=== PATIENT | female | born 1950 | race Caucasian/White ===

== ENCOUNTER 2023-02-27 14:50 | Inpatient (IN) | payer MEDICARE, OTHER, SELFPAY ==
[2023-02-27] VITALS (12 sets, daily range): BP systolic 100–168; BP diastolic 50–80; PULSE 108–124; RESP 15–24; TEMP 36.7; O2SAT 93–100
--- NOTE | ~2023-02-27 | CT_ITS ---
EXAMINATION: CTA chest PE protocol DATE: 02/27/2023 22:18 INDICATION: Dyspnea. TECHNIQUE: Computed tomography angiography (CTA) of the chest was performed with 100 mL Omnipaque-350 intravenous contrast timed to evaluate the pulmonary arteries. Coronal maximum intensity projection 3D-reconstructions were created by the technologist. Automated exposure control and iterative reconst ruction technique were employed. The dose-length product was 164.65 mGy-cm. COMPARISON: Chest CT 02/04/2014 FINDINGS: There is severe emphysema with multifocal scarring. Calcified pulmonary nodules are consist ent with old granulomatous disease. There is mild bronchiectasis in lingula. There is mild atelectasi s in the inferior lungs. No pleural effusion. There is a right posterior diaphragmatic hernia contain ing fat. The heart size is normal. No pericardial effusion. There is no pulmonary embolus. There is m ild thoracic spondylosis. There is a chronic burst fracture of T11. IMPRESSION: 1. No pulmonary embolus. 2. Severe emphysema with multifocal scarring. Reviewed, dictated and finalized at location E.
--- NOTE | ~2023-02-27 | XR_ITS ---
XR chest 1V portable DATE: 03/04/2023 04:03 INDICATION: Shortness of breath TECHNIQUE: Portable AP chest on 03/04/2023 COMPARISON: 02/27/2023 CT pulmonary scan 02/27/2023 portable AP chest FINDINGS: Bilateral hyperinflation consistent with COPD. Chronic bilateral scarring. No consolidation , pleural effusion, pulmonary vascular congestion or pneumothorax is noted. Normal heart size. Aortic calcification. Osteopenia. IMPRESSION: COPD, multifocal scarring; no significant change since 02/27/2022 Reviewed, dictated and finalized at location A.
--- NOTE | ~2023-02-27 | XR_ITS ---
EXAMINATION: XR chest 1V portable DATE: 02/27/2023 19:29 INDICATION: Shortness of breath. TECHNIQUE: A single frontal view of the chest was obtained. COMPARISON: Chest 2 views 03/09/2014 FINDINGS: There are lucencies and chronic interstitial opacities in the lungs, consistent with emphys michelle. There are scattered chronic airspace opacities in the lungs, consistent with scarring. No pleura l effusion or pneumothorax. The heart size is normal. IMPRESSION: 1. Severe emphysema with multifocal lung scarring. Reviewed, dictated and finalized at location E.
--- NOTE | ~2023-02-27 | CT_ITS ---
EXAMINATION: CT cervical spine wo con DATE: 02/27/2023 18:33 INDICATION: Head injury. TECHNIQUE: Computed tomography (CT) of the cervical spine was performed without intravenous contrast. Automated exposure control and iterative reconstruction technique were employed. The dose-length pro duct was 116.37 mGy-cm. COMPARISON: Chest CT 02/04/2014 FINDINGS: There is severe emphysema with multifocal scarring in the lungs. There is 2 mm anterolisthe sis of C4 on C5 and C5 on C6. Vertebral body heights are normal. Intervertebral disc heights are norm al. The following disc levels are specifically discussed: C2-C3: There is no uncovertebral joint osteoarthritis. There is severe bilateral facet joint osteoart hritis. There is mild bilateral neural foraminal stenosis. There is no central canal stenosis. C3-C4: There is no uncovertebral joint osteoarthritis. There is moderate bilateral facet joint osteoa rthritis. There is no neural foraminal stenosis. There is no central canal stenosis. C4-C5: There is no uncovertebral joint osteoarthritis. There is severe bilateral facet joint osteoart hritis. There is mild bilateral neural foraminal stenosis. There is no central canal stenosis. C5-C6: There is no uncovertebral joint osteoarthritis. There is moderate right and severe left facet joint osteoarthritis. There is mild left neural foraminal stenosis. There is no central canal stenosi s. C6-C7: There is no uncovertebral joint osteoarthritis. There is mild right and moderate left facet margie int osteoarthritis. There is no neural foraminal stenosis. There is no central canal stenosis. C7-T1: There is no uncovertebral joint osteoarthritis. There is mild bilateral facet joint osteoarthr itis. There is no neural foraminal stenosis. There is no central canal stenosis. IMPRESSION: 1. No fracture. 2. Mild cervical spondylosis. 3. Severe emphysema. Reviewed, dictated and finalized at location E.
--- NOTE | ~2023-02-27 | CT_ITS ---
EXAMINATION: CT brain wo con DATE: 02/27/2023 18:33 INDICATION: Ground-level fall. TECHNIQUE: Computed tomography (CT) of the head was performed without intravenous contrast. The mA wa s adjusted according to patient size. Iterative reconstruction technique was employed. The dose-lengt h product was 605.33 mGy-cm. COMPARISON: Head CT 02/10/2014 FINDINGS: There are scattered areas of low attenuation in the cerebral white matter, which is within normal limits for the patient's age. There is no intracranial hemorrhage, acute infarction, or abnorm al intracranial mass lesion. The ventricles are normal in size. There are likely changes of ocular le ns replacement surgeries. There is mild mucosal thickening in the paranasal sinuses. There is a right mastoid effusion. There is a left otomastoid effusion. There is frontal and right lateral scalp soft tissue swelling. IMPRESSION: 1. Normal aging brain. Reviewed, dictated and finalized at location E. IMPRESSION: 1. Normal aging brain.
--- NOTE | 2023-02-27 15:21 | ECG_ITS ---
Measurements Intervals [place] Rate: 110 P: 76 SD: 165 QRS: 76 QRSD: 85 T: 69 QT: 328 QTc: 444 Interpretive Statements SINUS TACHYCARDIA BASELINE ARTIFACT- I, II, III, AVR, AVL, AVF, V1-V2, V4-V6 ABNORMAL ECG NO PREVIOUS ECG AVAILABLE FOR COMPARISON Electronically Signed On 02-27-2023 16:19:25 CDT by Winston Craven D.O.
--- NOTE | 2023-02-27 17:53 | ED.FALL ---
HPI - Fall General Chief Complaint: Fall <Tomy Stein MD - Last Filed: 02/27/23 19:13> Stated Complaint: GLF <Tomy Stein MD - Last Filed: 02/27/23 19:13> Time Seen by Provider: 02/27/23 16:35 <Tomy Stein MD - Last Filed: 02/27/23 19:13> History of Present Illness HPI Narrative: This is a 72-year-old female with past history of emphysema on 3 L of O2, who presents to the emergency department after fall at home. The patient states she was walking, when she lost her balance, striking her head on a desk. She denies other injuries, denies loss of consciousness but had difficulty standing. She has no other complaints today. <Tomy Stein MD - Last Filed: 02/27/23 19:13> Related Data Allergies/Adverse Reactions: Allergies Allergy/AdvReac Type Severity Reaction Status Date / Time acetaminophen Allergy Severe Anaphylactic Verified 02/27/23 14:54 Shock guaifenesin Allergy Severe Anaphylactic Verified 02/27/23 14:54 Shock potassium guaiacolsulfonate Allergy Severe Anaphylactic Verified 02/27/23 14:54 Shock sulfamethoxazole Allergy Severe Anaphylactic Verified 02/27/23 14:54 Shock trimethoprim Allergy Severe Anaphylactic Verified 02/27/23 14:54 Shock codeine Allergy Mild Anaphylactic Verified 02/27/23 14:54 Shock HYDROCODONE BIT Allergy Severe Anaphylactic Uncoded 02/27/23 14:54 Shock <Tomy Stein MD - Last Filed: 02/27/23 19:13> Review of Systems Review of Systems: CONSTITUTIONAL: Denies fever, chills, or sweats. CARDIOVASCULAR: Denies chest pain, palpitations, or edema. RESPIRATORY: Chronic dyspnea denies cough GASTROINTESTINAL: Denies abdominal pain, nausea, vomiting, or diarrhea. GENITOURINARY: Denies dysuria or hematuria. SKIN: Denies rash or itching. MUSCULOSKELETAL: Denies back pain, joint pain, or myalgia. NEUROLOGIC: Headache denies numbness, dizziness, or weakness. PSYCHIATRIC: Denies anxiety or depression. <Tomy Stein MD - Last Filed: 02/27/23 19:13> [facility] Past Medical History Medical History: Medical History (Updated 02/27/23 @ 22:55 by Elgin Gomes MD) Emphysema of lung <Tomy Stein MD - Last Filed: 02/27/23 19:13> Surgical History Surgical History: Surgical History (Updated 02/27/23 @ 17:55 by Tomy Stein MD) History of left hip replacement <Tomy Stein MD - Last Filed: 02/27/23 19:13> Social History Social History: Social History (Updated 02/27/23 @ 17:55 by Tomy Stein MD) Smoking status: Never smoker Alcohol intake: never Substance use: never <Tomy Stein MD - Last Filed: 02/27/23 19:13> Exam Narrative: GENERAL: Well-developed, well-nourished, and in no acute distress. HEAD: Normocephalic, ecchymosis and small hematoma noted to the left anterior aspect of the forehead EYES: PERRLA and EOMI. ENT: Nares clear, no rhinorrhea or epistaxis. Mucous membranes moist. Oropharynx without tonsillar hypertrophy exudate or other lesions. NECK: Supple. No adenopathy or masses. No JVD. No midline spine tenderness to palpation, no step-off or crepitus CHEST: Clear to auscultation. No respiratory distress. No wheezes rales or rhonchi HEART: Regular rate and rhythm. No murmur heard. Normal peripheral pulses. ABDOMEN: Soft, nontender, nondistended, normal active bowel sounds. BACK: No midline spine tenderness to palpation, no step-off or crepitus EXTREMITIES: Skin tear is noted over the anterior aspect of the right knee measuring approximately 3 cm. Normal range of motion. No edema. SKIN: Warm, dry, no rash. NEURO: No focal deficits. Alert and oriented x3. Strength 5/5 in all extremities, sensation intact bilaterally, no noted ataxia PSYCH: Normal mood and affect. <Tomy Stein MD - Last Filed: 02/27/23 19:13> Course Course Emergency Course: 19:10 - CT head negative for intracranial fracture or hemorrh
[2023-02-27] MEDS: SODIUM CHLORIDE 0.9% IV 1,000 ML 999 ML IV CONT ×2 (18:07→19:28)
[2023-02-27] MEDS: TETANUS,DIPHTHERIA,AC PERTUSSIS ADULT (0.5 ML) BOOSTRIX IM (18:09)
[2023-02-27 18:14] LABS: Basophils Absolute Auto 0.1 K/mm3 (0.0-0.1); Basophils Percent Auto 0.5 % (0.2-1.2); Eosinophils Absolute Auto 0.2 K/mm3 (0-0.3); Eosinophils Percent Auto 1.6 % (0-4.4); Hematocrit 35.8 % (37.0-47.0); Hemoglobin 10.8 g/dL (12.0-15.0); Immature Granulocyte Absolute 0.04 K/mm3 (0.00-0.031); Immature Granulocyte Percent A 0.3 % (0-0.5); Lymphocytes Absolute Auto 1.31 K/mm3 (0.9-3.2); Lymphocytes Percent Auto 11.1 % (18.3-44.2); Mean Corpuscular HGB Conc 30.2 g/dl (32-36); Mean Corpuscular Hemoglobin 28.6 pg (26-34); Mean Corpuscular Volume 94.7 fl (80-100); Mean Platelet Volume 9.6 fl (7.4-10.4); Monocytes Absolute Auto 0.8 K/mm3 (0.1-0.6); Monocytes Percent Auto 6.8 % (2.6-8.5); Neutrophils Absolute Auto 9.4 K/mm3 (1.3-6.7); Neutrophils Percent Auto 79.7 % (45.5-73.1); Platelet Count Result 197 k/mm3 (150-375); Red Blood Count 3.78 M/mm3 (4.2-5.4); Red Cell Distribution Width 11.2 % (11.5-14.5); White Blood Count 11.8 K/mm3 (4.5-10.0)
[2023-02-27 18:34] LABS: Alanine Aminotransferase 13 U/L (6-35); Albumin Level 3.9 g/dL (3.5-5.1); Alkaline Phosphatase 63 U/L (38-126); Aspartate Amino Transferase 26 U/L (14-36); Bilirubin,Total 0.4 mg/dL (0.2-1.3); Blood Urea Nitrogen 10 mg/dL (7-17); Calcium 9.5 mg/dL (8.4-10.2); Carbon Dioxide > 40 mmol/L (22-30); Chloride 88 mmol/L (98-107); Estimated Glomerular Filt Rate > 60; Glucose 128 mg/dL (65-110); Potassium 3.2 mmol/L (3.4-5.0); Sodium 138 mmol/L (137-145)
[2023-02-27] MEDS: LEVALBUTEROL NEB 1.25 MG/3 ML INHALATION (19:19)
[2023-02-27] MEDS: IPRATROPIUM BR 0.02% INH SOLN 0.5 MG/2.5 ML VIAL INHALATION (19:19)
--- NOTE | 2023-02-27 19:39 | PC.NURSE ---
Just spoke with pt's son, Dominick, and gave update about pt condition.
[2023-02-27 20:38] LABS: Alveolar/Arterial O2 Gradient 4.4 mmHg; Base Excess ABG 11.3 mEq/l (+/-2.0); Fractional Inspired Oxygen 32 %; Oxygen Content ABG 15.6 %vol (16.0-22.0); Oxygen Saturation ABG 96.6 % (95.0-100.0); Oxyhemoglobin 96.1 % THb (90.0-100.0); PO2 ABG 106.6 mmHg (80.0-100.0); PO2 FiO2 Ratio Arterial Blood 3.33 %; Total Hemoglobin 11.4 g/dL (12.0-18.0)
[2023-02-27 20:46] LABS: pH ABG 7.237 (7.350-7.450)
[2023-02-27 20:47] LABS: PCO2 ABG 98.2 mmHg (35.0-45.0)
[2023-02-27 20:48] LABS: Device NASAL CANNULA; Modified Allen's Test Pass; Site Drawn RIGHT RADIAL
[2023-02-27] MEDS: IPRATROPIUM BR 0.02% INH SOLN 0.5 MG/2.5 ML VIAL 1.5 MG INHALATION (20:54)
[2023-02-27] MEDS: LEVALBUTEROL NEB 1.25 MG/3 ML 5 MG INHALATION (20:54)
--- NOTE | 2023-02-27 21:24 | PC.NURSE ---
Called pts son, saurav, and updated him on pt status. He was made aware the pt will be admitted to hospital.
[2023-02-27] MEDS: LORazepam (*CRX) 0.5 MG TABLET PO (21:51)
--- NOTE | 2023-02-27 23:32 | PC.NURSE ---
This RN left a telephone message for pts son informing him of pts room number.
--- NOTE | 2023-02-27 23:58 | PM.IMHP ---
H&P: HPI History of Present Illness Date/Time: 02/27/23 23:30 Chief Complaint: Fall. Narrative: This is a 72-year-old female with severe emphysema and chronic respiratory failure on oxygen who presented to the emergency department via EMS from home for evaluation after a fall. At the time my evaluation the patient is very somnolent and is not able to provide much of a history. A majority of the following is obtained via a review of her EMR as well as triage in ED physician notes. 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 Her son was able to help her up. She sustained a skin tear on her right knee and a hematoma to the forehead and she complained of no other injuries on arrival. She denied loss of consciousness and antecedent symptoms prior to the fall. She was in sinus tachycardia on arrival to the ED with stable blood pressures. CT of the brain and cervical spine showed no acute findings. CTA of the chest was negative for pulmonary embolism but showed severe emphysema. Labs were significant for WBC count of 11.8, hemoglobin 10.8, potassium 3.2, sodium 138, chloride 88, BUN 10, creatinine 0.30, carbon dioxide greater than 40. ABG showed a pH of 7.237 and a pCO2 of 98.2 and she was placed on BiPAP and was given 0.5 mg of p.o. lorazepam to anxiety. She is being admitted in this setting for further evaluation. At the time my evaluation she is somnolent and is arousable only to noxious stimuli. She will stay awake but is sleepy and her speech is slurred. She does not seem to have any acute complaints. She was able to specifically denies chest pain and feelings of shortness of breath. She has mild aching pain on her forehead where she has the hematoma. She denies recent illness. Review of Systems Review of Systems: A review of systems was attempted but limited due to the patient's somnolence as detailed above. [facility] Past Medical History Medical History (Updated 02/28/23 @ 00:40 by Edith Jones PA-C) Chronic respiratory failure with hypoxia, on home oxygen therapy Emphysema of lung Surgical History Surgical History History of left hip replacement Family History Family History (Updated 02/28/23 @ 00:36 by Edith Jones PA-C) Other Family history unknown Social History Social History (Updated 02/28/23 @ 00:37 by Edith Jones PA-C) Social History: Code status: Full code. Smoking status: Never smoker Alcohol intake: never Substance use: never Additional living arrangements comments: Lives in [place]. Has a son Dominick and a daughter Roopa. Meds Home Medications and Allergies Allergies Allergy/AdvReac Type Severity Reaction Status Date / Time acetaminophen Allergy Severe Anaphylactic Verified 02/27/23 14:54 Shock guaifenesin Allergy Severe Anaphylactic Verified 02/27/23 14:54 Shock potassium guaiacolsulfonate Allergy Severe Anaphylactic Verified 02/27/23 14:54 Shock sulfamethoxazole Allergy Severe Anaphylactic Verified 02/27/23 14:54 Shock trimethoprim Allergy Severe Anaphylactic Verified 02/27/23 14:54 Shock codeine Allergy Mild Anaphylactic Verified 02/27/23 14:54 Shock HYDROCODONE BIT Allergy Severe Anaphylactic Uncoded 02/27/23 14:54 Shock Vital Signs Vital Signs - 24 hr 02/27/23 14:46 02/27/23 15:46 02/27/23 17:12 Temperature 98.0 F Pulse Rate 115 H 111 H 115 H Respiratory Rate 21 H 17 24 H Blood Pressure 168/73 H 133/69 116/68 Pulse Oximetry 95 95 97 Oxygen Delivery Nasal Cannula Oxygen Flow Rate 2 02/27/23 18:09 02/27/23 18:50 02/27/23 19:19 Temperature Pulse Rate 119 H 122 H 122 H Respiratory Rate 20 21 H 17 Blood Pressure 159/78 H 161/71 H Pulse Oximetry 100 93 Oxygen Delivery Oxygen Flow Rate 02/27/23 19:32 02/27/23 20:06 02/27/23
[2023-02-28] VITALS (28 sets, daily range): BP systolic 113–152; BP diastolic 55–73; PULSE 78–120; RESP 14–24; TEMP 36.4–36.8; O2SAT 91–100; BMI 16.2
--- NOTE | 2023-02-28 00:11 | ADMGEN ---
This patient, Rabia Levine, was admitted to IMU Room 205-02. Patient/family oriented to hospital policies and general routines including ID bracelet, bed and alarms, visiting hours, pain management, procedures, bathroom and other care routines, personal items, smoking policy, room service/diet, and visiting hours. Information on how to activate the Rapid Response Team has been discussed. Patient/Family are encouraged to report perceived risks to care and to ask questions if they do not understand what they are told or what they should do.
[2023-02-28 00:42] LABS: Alveolar/Arterial O2 Gradient 48.6 mmHg; Base Excess ABG 12.7 mEq/l (+/-2.0); Fractional Inspired Oxygen 32 %; HCO3 ABG 41.7 mEq/l (22.0-26.0); Oxygen Saturation ABG 94.8 % (95.0-100.0); Oxyhemoglobin 94.5 % THb (90.0-100.0); PO2 FiO2 Ratio Arterial Blood 2.59 %; Total Hemoglobin 11.2 g/dL (12.0-18.0); pH ABG 7.322 (7.350-7.450)
[2023-02-28 00:47] LABS: Device BIPAP; Modified Allen's Test Pass; PCO2 ABG 82.5 mmHg (35.0-45.0); Site Drawn RIGHT BRACHIAL
[2023-02-28 00:49] LABS: Expiratory Pressure 6 cmH2O; Inspiratory Pressure 12 cmH2O
[2023-02-28] MEDS: methylPREDNISolone SOD SUCC 125 MG VIAL 40 MG IV PUSH ×4 (01:09→17:18)
[2023-02-28] MEDS: KCL 20 MEQ/SW 100 ML 100 ML 50 MEQ IVPB (01:17)
[2023-02-28] MEDS: IPRATROPIUM BR 0.02% INH SOLN 0.5 MG/2.5 ML VIAL INHALATION ×4 (03:27→20:46)
[2023-02-28] MEDS: ALBUTEROL SULFATE NEB 2.5 MG/3 ML INH INHALATION ×4 (03:27→20:46)
--- NOTE | 2023-02-28 03:33 | PC.NURSE ---
Admission and history done with limited answers from patient and ED record. Phone numbers for son and daughter called without answer, Unable to verify if patient takes any home medications.
--- NOTE | 2023-02-28 04:24 | PC.NURSE ---
Received call from patient's son who read medication bottles to this nurse.
[2023-02-28 05:10] LABS: Hematocrit 36.1 % (37.0-47.0); Hemoglobin 10.4 g/dL (12.0-15.0); Mean Corpuscular HGB Conc 28.8 g/dl (32-36); Mean Corpuscular Volume 97.3 fl (80-100); Mean Platelet Volume 9.8 fl (7.4-10.4); Platelet Count Result 149 k/mm3 (150-375); Red Blood Count 3.71 M/mm3 (4.2-5.4); White Blood Count 7.5 K/mm3 (4.5-10.0)
[2023-02-28 05:36] LABS: Blood Urea Nitrogen 7 mg/dL (7-17); Calcium 8.7 mg/dL (8.4-10.2); Carbon Dioxide > 40 mmol/L (22-30); Chloride 96 mmol/L (98-107); Estimated Glomerular Filt Rate > 60; Glucose 145 mg/dL (65-110); Potassium 3.8 mmol/L (3.4-5.0); Sodium 138 mmol/L (137-145)
[2023-02-28 08:01] LABS: Alveolar/Arterial O2 Gradient 63.2 mmHg; Base Excess ABG 10.2 mEq/l (+/-2.0); Fractional Inspired Oxygen 32 %; HCO3 ABG 38.1 mEq/l (22.0-26.0); Oxygen Content ABG 15.8 %vol (16.0-22.0); Oxygen Saturation ABG 95.5 % (95.0-100.0); Oxyhemoglobin 95.3 % THb (90.0-100.0); PO2 ABG 83.8 mmHg (80.0-100.0); PO2 FiO2 Ratio Arterial Blood 2.62 %; Total Hemoglobin 11.7 g/dL (12.0-18.0); pH ABG 7.357 (7.350-7.450)
[2023-02-28 08:05] LABS: PCO2 ABG 69.4 mmHg (35.0-45.0); Site Drawn LEFT BRACHIAL
[2023-02-28 08:06] LABS: Device NON-INVASIVE VENT; Non-Invasive Inspiratory Pressure 16 CMH2O
[2023-02-28 08:07] LABS: Non-Invasive Expiratory Pressure 8 CMH2O
[2023-02-28 08:30] LABS: Non-Invasive Vent Rate 18 /MIN
[2023-02-28 09:34] LABS: Thyroid Stimulating Hormone Reflex 0.307 uIU/mL (0.465-4.68)
[2023-02-28 09:58] LABS: Free T4 Free Thyroxine Reflex 1.16 ng/dL (0.78-2.19)
[2023-02-28] MEDS: PANTOPRAZOLE 40 MG TABLET PO (10:00)
[2023-02-28] MEDS: FERROUS SULFATE 325 MG TABLET DR PO (10:00)
[2023-02-28] MEDS: FUROSEMIDE 20 MG TABLET 40 MG PO (10:00)
[2023-02-28] MEDS: POTASSIUM CHLORIDE 10 MEQ ER TABLET PO (10:00)
[2023-02-28 10:42] LABS: Total Triiodothyronine (T3) 1.39 NG/ML (0.97-1.69)
--- NOTE | 2023-02-28 11:15 | PM.IMPN ---
Progress Note: A&P Assessment and Plan (1) Acute on chronic respiratory failure with hypoxia and hypercapnia: Code(s): J96.21 - Acute and chronic respiratory failure with hypoxia; J96.22 - Acute and chronic respiratory failure with hypercapnia Status: Acute Assessment and Plan: ABG looks better. Looks like chronic compensation this point. Will let the patient eat get off BiPAP today. Will repeat ABG tonight. (2) Encephalopathy: Code(s): G93.40 - Encephalopathy, unspecified Status: Acute Assessment and Plan: Improved (3) Fall from ground level: Code(s): W18.30XA - Fall on same level, unspecified, initial encounter Status: Acute Assessment and Plan: PT OT (4) Contusion of forehead: Qualifiers: Encounter type: initial encounter Qualified Code(s): S00.83XA - Contusion of other part of head, initial encounter Code(s): S00.83XA - Contusion of other part of head, initial encounter Status: Acute Assessment and Plan: Monitor (5) Skin tear of right lower leg without complication: Qualifiers: Encounter type: initial encounter Qualified Code(s): S81.811A - Laceration without foreign body, right lower leg, initial encounter Code(s): S81.811A - Laceration without foreign body, right lower leg, initial encounter Status: Acute (6) Acute exacerbation of chronic obstructive pulmonary disease: Code(s): J44.1 - Chronic obstructive pulmonary disease with (acute) exacerbation Status: Acute Assessment and Plan: Continue steroids. Continue nebulizers. (7) Reflux esophagitis: Code(s): K21.00 - Gastro-esophageal reflux disease with esophagitis, without bleeding Status: Acute Assessment and Plan: History of, continue PPI. Subjective Date/time seen: 02/28/23 11:15 Interval history: Patient reports breathing is much better. ABG looks to be compensated at this time. She wants to be off her BiPAP. She is refusing at this time. Exam Const: Other: Thin, frail, ill-appearing female in the semi-Bliss position in bed on BiPAP. She is somnolent but arousable to noxious stimuli. Weight: 36.4 kg. BMI: 16.2. HENMT: Other: There is a hematoma across the forehead, more prominent on the right. BiPAP in place. Nares patent. Tacky mucous membranes. Eyes: Other: Pupils are approximately 3 mm and are reactive. Sclerae anicteric. Conjunctiva mildly injected. Neck: Other: Supple. No obvious JVD. Resp: Other: Respirations are nonlabored and she is tolerating BiPAP. Lung sounds are significantly diminished throughout with faint expiratory wheezing. Tidal volumes between 200 and 300. Cardio: Other: Regular rate rhythm with normal S1-S2. GI: Other: Abdomen is soft, flat, nontender, nondistended with positive bowel sounds. Skin: Other: Warm and dry. Hematoma on the forehead. There is a skin tear on the right leg. Neuro: Other: Alert to name. She does not answer the rest of the orientation questions. Cranial nerves 2-12 appear grossly intact. Hand crabbing machine operator are weak due to poor effort but seem equal bilaterally. She does not participate in the rest of the neurologic exam. Extrem: Other: No cyanosis, clubbing, or edema. Peripheral pulses intact. Psych: Other: Somnolent and unable to evaluate accurately at this time. Objective Data Vital Signs Vital Signs: Vital Signs - 24 hr 02/27/23 14:46 02/27/23 15:46 02/27/23 17:12 Temperature 98.0 F Pulse Rate 115 H 111 H 115 H Respiratory Rate 21 H 17 24 H Blood Pressure 168/73 H 133/69 116/68 Pulse Oximetry 95 95 97 Oxygen Delivery Nasal Cannula Oxygen Flow Rate 2 02/27/23 18:09 02/27/23 18:50 02/27/23 19:19 Temperature Pulse Rate 119 H 122 H 122 H Respiratory Rate 20 21 H 17 Blood Pressure 159/78 H 161/71 H Pulse Oximetry 100 93 Oxygen Delivery Oxygen [place]
[2023-02-28] MEDS: SILVERGEL (ELTA) 45 ML 1 APPLIC TOPICAL (17:04)
--- NOTE | 2023-02-28 18:10 | PC.NURSE ---
Dr Yusuf made aware of critical results of CO2 69.4 from ABG today and gave verbal order to take off Bipap and place on NC titrate as tolerated to home sitting of 3 L and repeat ABG at 1900 this evening.
[2023-02-28 19:51] LABS: Alveolar/Arterial O2 Gradient 31.5 mmHg; Base Excess ABG 16.4 mEq/l (+/-2.0); Fractional Inspired Oxygen 28 %; HCO3 ABG 44.2 mEq/l (22.0-26.0); Oxygen Content ABG 15.3 %vol (16.0-22.0); Oxygen Saturation ABG 95.8 % (95.0-100.0); Oxyhemoglobin 95.2 % THb (90.0-100.0); PO2 ABG 83.2 mmHg (80.0-100.0); PO2 FiO2 Ratio Arterial Blood 2.97 %; Total Hemoglobin 11.4 g/dL (12.0-18.0); pH ABG 7.406 (7.350-7.450)
[2023-02-28 19:56] LABS: Device NASAL CANNULA; Modified Allen's Test Pass; Site Drawn RIGHT BRACHIAL
[2023-03-01] VITALS (24 sets, daily range): BP systolic 102–149; BP diastolic 61–90; PULSE 82–132; RESP 12–20; TEMP 36.4–36.7; O2SAT 95–100
[2023-03-01] MEDS: methylPREDNISolone SOD SUCC 125 MG VIAL 40 MG IV PUSH ×5 (00:03→23:33)
[2023-03-01] MEDS: ALBUTEROL SULFATE NEB 2.5 MG/3 ML INH INHALATION ×2 (02:10→08:32)
[2023-03-01] MEDS: IPRATROPIUM BR 0.02% INH SOLN 0.5 MG/2.5 ML VIAL INHALATION ×4 (02:10→20:44)
[2023-03-01] MEDS: POTASSIUM CHLORIDE 10 MEQ ER TABLET PO (09:22)
[2023-03-01] MEDS: FERROUS SULFATE 325 MG TABLET DR PO (09:23)
[2023-03-01] MEDS: FUROSEMIDE 20 MG TABLET 40 MG PO (09:23)
[2023-03-01] MEDS: PANTOPRAZOLE 40 MG TABLET PO (09:23)
[2023-03-01] MEDS: SILVERGEL (ELTA) 45 ML 1 APPLIC TOPICAL (09:24)
[2023-03-01 10:31] LABS: Alveolar/Arterial O2 Gradient 61.8 mmHg; Base Excess ABG 13.9 mEq/l (+/-2.0); Carboxyhemoglobin 0.4 % THb (0-2.0); Fractional Inspired Oxygen 28 %; HCO3 ABG 40.5 mEq/l (22.0-26.0); Methemoglobin ABG 0.3 %THb (0-1.5); Oxygen Content ABG 16.2 %vol (16.0-22.0); Oxygen Saturation ABG 93.5 % (95.0-100.0); Oxyhemoglobin 92.9 % THb (90.0-100.0); PO2 FiO2 Ratio Arterial Blood 2.39 %; Reduced Hemoglobin 6.4 %THb (0-5.0); Total Hemoglobin 12.4 g/dL (12.0-18.0); pH ABG 7.447 (7.350-7.450)
[2023-03-01 10:33] LABS: Device NASAL CANNULA; Site Drawn LEFT BRACHIAL
--- NOTE | 2023-03-01 11:59 | PM.IMPN ---
Progress Note: A&P Assessment and Plan (1) Acute on chronic respiratory failure with hypoxia and hypercapnia: Code(s): J96.21 - Acute and chronic respiratory failure with hypoxia; J96.22 - Acute and chronic respiratory failure with hypercapnia Status: Acute Assessment and Plan: ABG looks better. Looks compensated at this point. 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 She does have bad COPD. Continue oxygen. Will also have Pulmonary see the patient to see if she needs to have BiPAP set up at home. Will likely need [facility]nea[facility]. (2) Encephalopathy: Code(s): G93.40 - Encephalopathy, unspecified Status: Acute Assessment and Plan: Improved (3) Fall from ground level: Code(s): W18.30XA - Fall on same level, unspecified, initial encounter Status: Acute Assessment and Plan: PT OT (4) Contusion of forehead: Qualifiers: Encounter type: initial encounter Qualified Code(s): S00.83XA - Contusion of other part of head, initial encounter Code(s): S00.83XA - Contusion of other part of head, initial encounter Status: Acute Assessment and Plan: Monitor (5) Skin tear of right lower leg without complication: Qualifiers: Encounter type: initial encounter Qualified Code(s): S81.811A - Laceration without foreign body, right lower leg, initial encounter Code(s): S81.811A - Laceration without foreign body, right lower leg, initial encounter Status: Acute (6) Acute exacerbation of chronic obstructive pulmonary disease: Code(s): J44.1 - Chronic obstructive pulmonary disease with (acute) exacerbation Status: Acute Assessment and Plan: Continue steroids. Continue nebulizers. No indication for antibiotics at this time Pulmonary consult (7) Reflux esophagitis: Code(s): K21.00 - Gastro-esophageal reflux disease with esophagitis, without bleeding Status: Acute Assessment and Plan: History of, continue PPI. Subjective Date/time seen: 03/01/23 11:59 Interval history: Patient reports her breathing is much better. ABG noted. Exam Const: Other: Thin, frail, ill-appearing female in the semi-Bliss position in bed on BiPAP. She is somnolent but arousable to noxious stimuli. Weight: 36.4 kg. BMI: 16.2. HENMT: Other: There is a hematoma across the forehead, more prominent on the right. BiPAP in place. Nares patent. Tacky mucous membranes. Eyes: Other: Pupils are approximately 3 mm and are reactive. Sclerae anicteric. Conjunctiva mildly injected. Neck: Other: Supple. No obvious JVD. Resp: Other: Respirations are nonlabored and she is tolerating BiPAP. Lung sounds are significantly diminished throughout with faint expiratory wheezing. Tidal volumes between 200 and 300. Cardio: Other: Regular rate rhythm with normal S1-S2. GI: Other: Abdomen is soft, flat, nontender, nondistended with positive bowel sounds. Skin: Other: Warm and dry. Hematoma on the forehead. There is a skin tear on the right leg. Neuro: Other: Alert to name. She does not answer the rest of the orientation questions. Cranial nerves 2-12 appear grossly intact. Hand jewelry model maker are weak due to poor effort but seem equal bilaterally. She does not participate in the rest of the neurologic exam. Extrem: Other: No cyanosis, clubbing, or edema. Peripheral pulses intact. Psych: Other: Somnolent and unable to evaluate accurately at this time. Objective Data Vital Signs Vital Signs: Vital Signs - 24 hr 02/28/23 12:00 02/28/23 13:16 02/28/23 12:00 Temperature 98.3 F Pulse Rate 110 H 112 H 106 H Respiratory Rate 14 18 Blood Pressure 132/69 Pulse Oximetry 95 Oxygen Delivery Oxygen Flow Rate 02/28/23 12:00 02/28/23 13:31 02/28/23 14:00 Temperature Pulse Rate 113 H 115 H Respiratory Rate 18 Blood Pressure Pulse Oximetry 10
[2023-03-01] MEDS: METOPROLOL SUCCINATE EXT REL 25 MG TABCR PO (13:14)
[2023-03-01] MEDS: LEVALBUTEROL NEB 1.25 MG/3 ML 0.63 MG INHALATION ×2 (13:44→20:44)
--- NOTE | 2023-03-01 14:08 | PM.CNPUL ---
Assessment and Plan Assessment and plan (1) Acute exacerbation of chronic obstructive pulmonary disease: Code(s): J44.1 - Chronic obstructive pulmonary disease with (acute) exacerbation Status: Acute Assessment and Plan: Severe emphysema on chest CT; non-homogenous cystic changes in lung parenchyma. scattered areas of scarring. Her home med list shows that she takes Spiriva. She has severe emphysema, would benefit from nebulized medications instead of inhaler as she has limited inspiratory reserve, cannot take a breath in that is effective enough to distribute a puff of tiotropium around her damaged lung tissue. plan: start budesonide 0.5 mg BID, arformoterol 15 mcg/2 ml BID, ipratropium q.i.d. and albuterol daily. Pulmonary rehab would be beneficial however she would need PFTs, home O2 evaluation and Lexiscan before starting therapy. She does not get out of the house much. She currently does not have any sputum to evaluate, says that she has small amounts of brown sputum at home once every few weeks. She does not have frequent respiratory infections. (2) Acute on chronic respiratory failure with hypoxia and hypercapnia: Code(s): J96.21 - Acute and chronic respiratory failure with hypoxia; J96.22 - Acute and chronic respiratory failure with hypercapnia Status: Acute Assessment and Plan: She uses O2 at home, 3 L/min around the clock. She used BiPAP 12/6 with 3 L which did help with ventilation. She tells me the mask was uncomfortable, she would never use it at home therefore there is no reason for us to perform an ApneaLink or tried to set her up on a noninvasive device. She has non homogeneous distribution of cystic lesions throughout her lungs. 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 She would be best is optimizing her nebulized treatments, pulmonary rehab, and she is probably too frail to have a full pulmonary function test. She needs to have a Home O2 evaluation before discharge to establish what her needs are for rest and exertion. Initial blood gas showed pO2 of 106 on 3 L; I think she was on more oxygen than 3 L/minute. (3) History of tobacco abuse: Code(s): Z87.891 - Personal history of nicotine dependence Status: Acute Assessment and Plan: < 1/2 ppd, quit age 59, smoked 40 years, less than 40 pack years Plan Stop Solu-Medrol 60 mg IV q.6 hours Start prednisone 50 mg in the morning with food. Stop Spiriva. Start budesonide 0.5 mg BID, arformoterol 15 mcg/2 ml BID, ipratropium q.i.d. and albuterol daily. Home oxygen evaluation before discharge No ApneaLink or PAP therapy for home use; she says she can not stand using it, does not like the mask which is uncomfortable. She would not use PAP therapy at home. She needs ENT outpatient follow-up for hearing loss and left ear fullness. I did not detect anything on my limited exam. She needs a thorough neuro exam for distinguishing cause of her dizziness and falls. Is she depressed? Quit eating and lost 43 lb after 2019. Would some antidepressant help her feel better and maybe eat more? Defer to primary care. History of Present Illness History of Present Illness Consult date: 03/02/23 Chief complaint: COPD Narrative: patient seen March 02 at 17:15 Room 213 NEW: Rabia Levine is a 72-year-old woman with long history of emphysema, on O2, admitted after falling. Initial WBC was 11.8, anemic H/H 10.8/35.8, with hypercapnic hypoxemic ABGs, pCO2 98. She was treated with BiPAP, does not want to use PAP at home. She cannot stand the mask, says it is too small, does not sleep well with it. She wants to go home as soon as possible. She became dizzy at home, was leaning forward & bending over, lost balance, fel
[2023-03-01] MEDS: METOPROLOL TARTRATE INJ 5 MG/5 ML VIAL IV PUSH (15:05)
[2023-03-02] VITALS (24 sets, daily range): BP systolic 120–140; BP diastolic 57–74; PULSE 76–115; RESP 18–22; TEMP 36.3–36.6; O2SAT 98–100
[2023-03-02] MEDS: LEVALBUTEROL NEB 1.25 MG/3 ML 0.63 MG INHALATION ×4 (02:49→20:55)
[2023-03-02] MEDS: IPRATROPIUM BR 0.02% INH SOLN 0.5 MG/2.5 ML VIAL INHALATION ×4 (02:49→20:58)
[2023-03-02] MEDS: methylPREDNISolone SOD SUCC 125 MG VIAL 40 MG IV PUSH ×3 (05:59→18:40)
[2023-03-02] MEDS: METOPROLOL SUCCINATE EXT REL 25 MG TABCR PO (09:49)
[2023-03-02] MEDS: FUROSEMIDE 20 MG TABLET 40 MG PO (09:49)
[2023-03-02] MEDS: PANTOPRAZOLE 40 MG TABLET PO (09:50)
[2023-03-02] MEDS: POTASSIUM CHLORIDE 10 MEQ ER TABLET PO (09:50)
[2023-03-02] MEDS: FERROUS SULFATE 325 MG TABLET DR PO (09:50)
--- NOTE | 2023-03-02 13:37 | PM.IMPN ---
Progress Note: A&P Assessment and Plan (1) Acute on chronic respiratory failure with hypoxia and hypercapnia: Code(s): J96.21 - Acute and chronic respiratory failure with hypoxia; J96.22 - Acute and chronic respiratory failure with hypercapnia Status: Acute Assessment and Plan: ABG looks better. Looks compensated at this point. Patient does not follow with a cushion padder. She does have bad COPD. Continue oxygen. Will also have Pulmonary see the patient to see if she needs to have BiPAP set up at home. Will likely need ApneaLink. (2) Encephalopathy: Code(s): G93.40 - Encephalopathy, unspecified Status: Acute Assessment and Plan: Improved (3) Fall from ground level: Code(s): W18.30XA - Fall on same level, unspecified, initial encounter Status: Acute Assessment and Plan: PT OT (4) Contusion of forehead: Qualifiers: Encounter type: initial encounter Qualified Code(s): S00.83XA - Contusion of other part of head, initial encounter Code(s): S00.83XA - Contusion of other part of head, initial encounter Status: Acute Assessment and Plan: Monitor (5) Skin tear of right lower leg without complication: Qualifiers: Encounter type: initial encounter Qualified Code(s): S81.811A - Laceration without foreign body, right lower leg, initial encounter Code(s): S81.811A - Laceration without foreign body, right lower leg, initial encounter Status: Acute (6) Acute exacerbation of chronic obstructive pulmonary disease: Code(s): J44.1 - Chronic obstructive pulmonary disease with (acute) exacerbation Status: Acute Assessment and Plan: Continue steroids. Continue nebulizers. No indication for antibiotics at this time Pulmonary consult (7) Reflux esophagitis: Code(s): K21.00 - Gastro-esophageal reflux disease with esophagitis, without bleeding Status: Acute Assessment and Plan: History of, continue PPI. Subjective Date/time seen: 03/02/23 13:37 Interval history: No new complaints Exam Const: Other: Thin, frail, ill-appearing female in the semi-Bliss position in bed on BiPAP. She is somnolent but arousable to noxious stimuli. Weight: 36.4 kg. BMI: 16.2. HENMT: Other: There is a hematoma across the forehead, more prominent on the right. BiPAP in place. Nares patent. Tacky mucous membranes. Eyes: Other: Pupils are approximately 3 mm and are reactive. Sclerae anicteric. Conjunctiva mildly injected. Neck: Other: Supple. No obvious JVD. Resp: Other: Respirations are nonlabored and she is tolerating BiPAP. Lung sounds are significantly diminished throughout with faint expiratory wheezing. Tidal volumes between 200 and 300. Cardio: Other: Regular rate rhythm with normal S1-S2. GI: Other: Abdomen is soft, flat, nontender, nondistended with positive bowel sounds. Skin: Other: Warm and dry. Hematoma on the forehead. There is a skin tear on the right leg. Neuro: Other: Alert to name. She does not answer the rest of the orientation questions. Cranial nerves 2-12 appear grossly intact. Hand air and hydronic balancing technician are weak due to poor effort but seem equal bilaterally. She does not participate in the rest of the neurologic exam. Extrem: Other: No cyanosis, clubbing, or edema. Peripheral pulses intact. Psych: Other: Somnolent and unable to evaluate accurately at this time. Objective Data Vital Signs Vital Signs: Vital Signs - 24 hr 03/01/23 13:46 03/01/23 14:07 03/01/23 14:00 Temperature Pulse Rate 128 H 132 H 132 H Respiratory Rate 16 18 Blood Pressure Pulse Oximetry Oxygen Delivery Oxygen Flow Rate Fraction of Inspired Oxygen 03/01/23 15:05 03/01/23 16:00 03/01/23 16:00 Temperature Pulse Rate 132 H 106 H 104 H Respiratory Rate Blood Pressure Pulse Oximetry 100 Oxygen Deliver
[2023-03-02] MEDS: SILVERGEL (ELTA) 45 ML 1 APPLIC TOPICAL (14:31)
[2023-03-03] VITALS (23 sets, daily range): BP systolic 110–158; BP diastolic 60–80; PULSE 61–107; RESP 18–20; TEMP 36.3–37.1; O2SAT 93–100
[2023-03-03] MEDS: IPRATROPIUM BR 0.02% INH SOLN 0.5 MG/2.5 ML VIAL INHALATION ×4 (02:50→20:50)
[2023-03-03] MEDS: KETOROLAC 30 MG/ML VIAL (*BKC) IV PUSH (06:37)
[2023-03-03] MEDS: BUDESONIDE RESPULE NEB 0.5 MG/2 ML AMP INHALATION ×2 (08:44→20:50)
[2023-03-03] MEDS: predniSONE 40 MG, predniSONE 10 MG 50 MG PO (08:45)
[2023-03-03] MEDS: PANTOPRAZOLE 40 MG TABLET PO (08:46)
[2023-03-03] MEDS: FUROSEMIDE 20 MG TABLET 40 MG PO (08:46)
[2023-03-03] MEDS: FERROUS SULFATE 325 MG TABLET DR PO (08:46)
[2023-03-03] MEDS: METOPROLOL SUCCINATE EXT REL 25 MG TABCR PO (08:46)
[2023-03-03] MEDS: POTASSIUM CHLORIDE 10 MEQ ER TABLET PO (08:47)
--- NOTE | 2023-03-03 09:09 | PM.PNPUL ---
Progress Note: A&P Assessment and Plan (1) COPD exacerbation: Code(s): J44.1 - Chronic obstructive pulmonary disease with (acute) exacerbation Status: Acute Assessment and Plan: Severe emphysema on chest CT; non-homogenous cystic changes in lung parenchyma. scattered areas of scarring. Her home med list shows that she takes Spiriva. She has severe emphysema, would benefit from nebulized medications instead of inhaler as she has limited inspiratory reserve, cannot take a breath in that is effective enough to distribute a puff of tiotropium around her damaged lung tissue. Continue budesonide 0.5 mg BID, arformoterol 15 mcg/2 ml BID, ipratropium q.i.d. and albuterol daily. She will need these for discharge. She has an old nebulizer at home. Pulmonary rehab would be beneficial however she would need PFTs, home O2 evaluation and Lexiscan before starting therapy.? She does not get out of the house much. Has no sputum to evaluate, says that she has small amounts of brown sputum at home once every few weeks.? She does not have frequent respiratory infections. (2) Acute on chronic respiratory failure with hypoxia and hypercapnia: Code(s): J96.21 - Acute and chronic respiratory failure with hypoxia; J96.22 - Acute and chronic respiratory failure with hypercapnia Status: Acute Assessment and Plan: She uses O2 at home, 3 L/min around the clock. She used BiPAP 07/25 with 3 L which did help with ventilation.? She tells me the mask was uncomfortable, she would never use it at home therefore there is no reason for us to perform an ApneaLink or try to set her up on a noninvasive device.? She has non homogeneous distribution of cystic lesions throughout her lungs.? I think using PAP on this patient assisted would risk a pneumothorax.? She would be best is optimizing her nebulized treatments, pulmonary rehab, and she is probably too frail to have a full pulmonary function test. She needs to have a Home O2 evaluation before discharge to establish what her needs are for rest and exertion.? Initial blood gas showed pO2 of 106 on 3 L; I think she was on more oxygen than 3 L/minute. (3) History of tobacco abuse: Code(s): Z87.891 - Personal history of nicotine dependence Status: Acute Assessment and Plan: < 1/2 ppd, quit age 59, smoked 40 years, less than 40 pack years Plan *small amount of acetazolamide, re-set Capnostat. *Check RA saturation; if 92% or higher, leave on room air at rest. * Wean O2 down. On 2 L at rest, saturation is 97-100%. *oral prednisone taper started today 03/03 * Stopped Spiriva. Started budesonide 0.5 mg BID, arformoterol 15 mcg/2 ml BID, ipratropium q.i.d. and albuterol daily. * Home oxygen evaluation before discharge No ApneaLink or PAP therapy for home use; she says she can not stand using it, does not like the mask which is uncomfortable.? She would not use PAP therapy at home. She needs ENT outpatient follow-up for hearing loss and left ear fullness. I did not detect anything on my limited exam. * She needs a thorough neuro exam for distinguishing cause of her dizziness and falls, and L Ptosis. She becomes wobbly when she is on her heels. Has fallen several times at home. Consider evaluation and treatment of depression. She quit eating and lost 43 lb after 2019. Her daughter, Roopa,grady Jackson came to visit. The patient asked me to come back in the room to discuss flying to [place] to live w her other daughter. I spoke with the patient again, and her daughter. I suggested that we see what her O2 need is in the hospital, see her in office follow up after she starts new COPD treatment with long acting bronchodilators, and get her neuro issue evaluated before flying. We can give her clear instruc
--- NOTE | 2023-03-03 11:27 | PM.IMPN ---
Progress Note: A&P Assessment and Plan (1) Acute on chronic respiratory failure with hypoxia and hypercapnia: Code(s): J96.21 - Acute and chronic respiratory failure with hypoxia; J96.22 - Acute and chronic respiratory failure with hypercapnia Status: Acute Assessment and Plan: ABG looks better. Looks compensated at this point. Patient does not follow with a compliance mgr. appreciate pulmonary input. Patient not likely to use BiPAP at night. Appears to be breathing much better. Home O2 eval prior to discharge (2) Encephalopathy: Code(s): G93.40 - Encephalopathy, unspecified Status: Acute Assessment and Plan: Improved (3) Fall from ground level: Code(s): W18.30XA - Fall on same level, unspecified, initial encounter Status: Acute Assessment and Plan: PT OT (4) Contusion of forehead: Qualifiers: Encounter type: initial encounter Qualified Code(s): S00.83XA - Contusion of other part of head, initial encounter Code(s): S00.83XA - Contusion of other part of head, initial encounter Status: Acute Assessment and Plan: Monitor (5) Skin tear of right lower leg without complication: Qualifiers: Encounter type: initial encounter Qualified Code(s): S81.811A - Laceration without foreign body, right lower leg, initial encounter Code(s): S81.811A - Laceration without foreign body, right lower leg, initial encounter Status: Acute (6) Acute exacerbation of chronic obstructive pulmonary disease: Code(s): J44.1 - Chronic obstructive pulmonary disease with (acute) exacerbation Status: Acute Assessment and Plan: Continue steroids. Continue nebulizers. No indication for antibiotics at this time Pulmonary consult (7) Reflux esophagitis: Code(s): K21.00 - Gastro-esophageal reflux disease with esophagitis, without bleeding Status: Acute Assessment and Plan: History of, continue PPI. Subjective Date/time seen: 03/03/23 11:27 Interval history: no complaints Exam Const: Other: Thin, frail, ill-appearing female in the semi-Bliss position in bed on BiPAP. She is somnolent but arousable to noxious stimuli. Weight: 36.4 kg. BMI: 16.2. HENMT: Other: There is a hematoma across the forehead, more prominent on the right. BiPAP in place. Nares patent. Tacky mucous membranes. Eyes: Other: Pupils are approximately 3 mm and are reactive. Sclerae anicteric. Conjunctiva mildly injected. Neck: Other: Supple. No obvious JVD. Resp: Other: Respirations are nonlabored and she is tolerating BiPAP. Lung sounds are significantly diminished throughout with faint expiratory wheezing. Tidal volumes between 200 and 300. Cardio: Other: Regular rate rhythm with normal S1-S2. GI: Other: Abdomen is soft, flat, nontender, nondistended with positive bowel sounds. Skin: Other: Warm and dry. Hematoma on the forehead. There is a skin tear on the right leg. Neuro: Other: Alert to name. She does not answer the rest of the orientation questions. Cranial nerves 2-12 appear grossly intact. Hand senior architectural designer are weak due to poor effort but seem equal bilaterally. She does not participate in the rest of the neurologic exam. Extrem: Other: No cyanosis, clubbing, or edema. Peripheral pulses intact. Psych: Other: Somnolent and unable to evaluate accurately at this time. Objective Data Vital Signs Vital Signs: Vital Signs - 24 hr 03/02/23 11:37 03/02/23 12:00 03/02/23 12:00 Temperature 97.3 F L Pulse Rate 115 H 112 H Respiratory Rate 18 Blood Pressure 137/70 Pulse Oximetry 98 100 Oxygen Delivery Nasal Cannula Oxygen Flow Rate 2 03/02/23 14:26 03/02/23 14:00 03/02/23 14:38 Temperature Pulse Rate 106 H 108 H 107 H Respiratory Rate 18 18 Blood Pressure Pulse Oximetry Oxygen Delivery Oxygen Flow Rat
[2023-03-03] MEDS: SILVERGEL (ELTA) 45 ML 1 APPLIC TOPICAL (13:00)
[2023-03-03] MEDS: acetaZOLAMIDE TAB 250 MG TABLET PO ×2 (13:00→17:44)
[2023-03-03] MEDS: BENZOCAINE/MENTHOL (*BKC) 18 EA LOZENGE 1 LOZENGE PO (15:02)
[2023-03-04] VITALS (23 sets, daily range): BP systolic 127–142; BP diastolic 55–70; PULSE 76–112; RESP 12–20; TEMP 36.1–36.4; O2SAT 90–96
[2023-03-04] MEDS: IPRATROPIUM BR 0.02% INH SOLN 0.5 MG/2.5 ML VIAL INHALATION ×4 (03:07→20:54)
[2023-03-04] MEDS: ALBUTEROL SULFATE NEB 2.5 MG/3 ML INH 10 MG INHALATION (04:04)
[2023-03-04] MEDS: methylPREDNISolone SOD SUCC 125 MG VIAL IV PUSH (04:04)
[2023-03-04] MEDS: BUDESONIDE RESPULE NEB 0.5 MG/2 ML AMP INHALATION ×2 (07:50→20:53)
[2023-03-04 08:43] LABS: Hematocrit 39.9 % (37.0-47.0); Hemoglobin 12.1 g/dL (12.0-15.0); Mean Corpuscular HGB Conc 30.3 g/dl (32-36); Mean Corpuscular Hemoglobin 28.7 pg (26-34); Mean Corpuscular Volume 94.5 fl (80-100); Mean Platelet Volume 9.7 fl (7.4-10.4); Platelet Count Result 217 k/mm3 (150-375); Red Blood Count 4.22 M/mm3 (4.2-5.4); Red Cell Distribution Width 11.6 % (11.5-14.5); White Blood Count 21.9 K/mm3 (4.5-10.0)
[2023-03-04 08:55] LABS: Blood Urea Nitrogen 28 mg/dL (7-17); Calcium 10.3 mg/dL (8.4-10.2); Carbon Dioxide > 40 mmol/L (22-30); Chloride 89 mmol/L (98-107); Estimated Glomerular Filt Rate > 60; Glucose 223 mg/dL (65-110); Potassium 3.1 mmol/L (3.4-5.0); Sodium 136 mmol/L (137-145)
[2023-03-04 09:13] LABS: Alveolar/Arterial O2 Gradient 18.6 mmHg; Base Excess ABG 14.6 mEq/l (+/-2.0); Fractional Inspired Oxygen 24 %; HCO3 ABG 43.7 mEq/l (22.0-26.0); Oxygen Content ABG 16.4 %vol (16.0-22.0); Oxyhemoglobin 89.8 % THb (90.0-100.0); PO2 ABG 58.4 mmHg (80.0-100.0); PO2 FiO2 Ratio Arterial Blood 2.43 %
[2023-03-04 09:15] LABS: Band Neutrophils Percent 6 % (0-6); Lymphocytes Absolute Manual 0.21 K/mm3 (1.1-4.5); Monocytes Absolute Manual 0.65 K/mm3 (0.1-0.90); Monocytes Percent Manual 3 % (3-9); Neutrophils Absolute Manual 21.02 K/mm3 (1.7-7.2); Neutrophils Percent Manual 90 % (46-73); Platelet Estimate Adequate (Adequate); Schistocytes None Seen (NORMAL); Stomatocytes 1+ (NORMAL); Total Cells Counted 100
[2023-03-04 09:19] LABS: Modified Allen's Test Pass; Oxygen Saturation ABG 87.8 % (95.0-100.0); PCO2 ABG 79.1 mmHg (35.0-45.0); Site Drawn RIGHT RADIAL
[2023-03-04 09:20] LABS: Device NASAL CANNULA
--- NOTE | 2023-03-04 10:36 | PCPTNOTE ---
The patient treatment was not able to be completed this date. RN states to hold on services for today due to patient not feeling well. Will continue per PT plan of care tomorrow.
[2023-03-04] MEDS: predniSONE 40 MG, predniSONE 10 MG 50 MG PO (10:45)
[2023-03-04] MEDS: POTASSIUM CHLORIDE 20 MEQ PACKET (FOR LIQUID) 40 MEQ PO (10:47)
[2023-03-04] MEDS: acetaZOLAMIDE TAB 250 MG TABLET PO (10:47)
[2023-03-04] MEDS: PANTOPRAZOLE 40 MG TABLET PO (10:48)
[2023-03-04] MEDS: FERROUS SULFATE 325 MG TABLET DR PO (10:48)
[2023-03-04] MEDS: METOPROLOL SUCCINATE EXT REL 25 MG TABCR PO (10:48)
[2023-03-04] MEDS: FUROSEMIDE 20 MG TABLET 40 MG PO (10:48)
--- NOTE | 2023-03-04 10:48 | PM.IMPN ---
Progress Note: A&P Assessment and Plan (1) Acute on chronic respiratory failure with hypoxia and hypercapnia: Code(s): J96.21 - Acute and chronic respiratory failure with hypoxia; J96.22 - Acute and chronic respiratory failure with hypercapnia Status: Acute Assessment and Plan: ABG looks better. Looks compensated at this point. Patient does not follow with a decorating instructor. appreciate pulmonary input. Patient not likely to use BiPAP at night. And is hardly tolerating a here. Will not use BiPAP tonight and recheck ABG in the morning. Appears to be breathing much better. Home O2 eval prior to discharge (2) Encephalopathy: Code(s): G93.40 - Encephalopathy, unspecified Status: Acute Assessment and Plan: Improved (3) Fall from ground level: Code(s): W18.30XA - Fall on same level, unspecified, initial encounter Status: Acute Assessment and Plan: PT OT (4) Contusion of forehead: Qualifiers: Encounter type: initial encounter Qualified Code(s): S00.83XA - Contusion of other part of head, initial encounter Code(s): S00.83XA - Contusion of other part of head, initial encounter Status: Acute Assessment and Plan: Monitor (5) Skin tear of right lower leg without complication: Qualifiers: Encounter type: initial encounter Qualified Code(s): S81.811A - Laceration without foreign body, right lower leg, initial encounter Code(s): S81.811A - Laceration without foreign body, right lower leg, initial encounter Status: Acute (6) Acute exacerbation of chronic obstructive pulmonary disease: Code(s): J44.1 - Chronic obstructive pulmonary disease with (acute) exacerbation Status: Acute Assessment and Plan: Continue steroids. Continue nebulizers. No indication for antibiotics at this time Pulmonary consult (7) Reflux esophagitis: Code(s): K21.00 - Gastro-esophageal reflux disease with esophagitis, without bleeding Status: Acute Assessment and Plan: History of, continue PPI. Subjective Date/time seen: 03/04/23 10:48 Interval history: Feels about the same Exam Const: Other: Thin, frail, ill-appearing female in the semi-Bliss position in bed on BiPAP. She is somnolent but arousable to noxious stimuli. Weight: 36.4 kg. BMI: 16.2. HENMT: Other: There is a hematoma across the forehead, more prominent on the right. BiPAP in place. Nares patent. Tacky mucous membranes. Eyes: Other: Pupils are approximately 3 mm and are reactive. Sclerae anicteric. Conjunctiva mildly injected. Neck: Other: Supple. No obvious JVD. Resp: Other: Respirations are nonlabored and she is tolerating BiPAP. Lung sounds are significantly diminished throughout with faint expiratory wheezing. Tidal volumes between 200 and 300. Cardio: Other: Regular rate rhythm with normal S1-S2. GI: Other: Abdomen is soft, flat, nontender, nondistended with positive bowel sounds. Skin: Other: Warm and dry. Hematoma on the forehead. There is a skin tear on the right leg. Neuro: Other: Alert to name. She does not answer the rest of the orientation questions. Cranial nerves 2-12 appear grossly intact. Hand cost specialist are weak due to poor effort but seem equal bilaterally. She does not participate in the rest of the neurologic exam. Extrem: Other: No cyanosis, clubbing, or edema. Peripheral pulses intact. Psych: Other: Somnolent and unable to evaluate accurately at this time. Objective Data Vital Signs Vital Signs: Vital Signs - 24 hr 03/03/23 12:00 03/03/23 12:00 03/03/23 12:00 Temperature 98.7 F Pulse Rate 95 97 Respiratory Rate 18 Blood Pressure 147/71 H Pulse Oximetry 100 Oxygen Delivery Room Air Oxygen Flow Rate Fraction of Inspired Oxygen 03/03/23 14:25 03/03/23 14:38 03/03/23 14:00 Temperature Pulse Rate
[2023-03-04] MEDS: SILVERGEL (ELTA) 45 ML 1 APPLIC TOPICAL (10:49)
[2023-03-04] MEDS: POTASSIUM CHLORIDE 10 MEQ ER TABLET PO (10:49)
[2023-03-04] MEDS: LEVALBUTEROL NEB 1.25 MG/3 ML 0.63 MG INHALATION ×2 (13:27→20:53)
--- NOTE | 2023-03-04 14:30 | PC.NURSE ---
Received from [facility] via bed. Family at bedside. Voiding without difficulty.
[2023-03-05] VITALS (16 sets, daily range): BP systolic 103; BP diastolic 51; PULSE 85–113; RESP 16–18; TEMP 35.7; O2SAT 87–100
[2023-03-05] MEDS: LEVALBUTEROL NEB 1.25 MG/3 ML 0.63 MG INHALATION ×3 (03:18→13:11)
[2023-03-05] MEDS: IPRATROPIUM BR 0.02% INH SOLN 0.5 MG/2.5 ML VIAL INHALATION ×3 (03:19→13:11)
[2023-03-05 05:44] LABS: Alveolar/Arterial O2 Gradient < 0.0 mmHg; Base Excess ABG 12.3 mEq/l (+/-2.0); Fractional Inspired Oxygen 28 %; HCO3 ABG 41.1 mEq/l (22.0-26.0); Oxygen Content ABG 17.3 %vol (16.0-22.0); Oxygen Saturation ABG 97.5 % (95.0-100.0); Oxyhemoglobin 96.6 % THb (90.0-100.0); PO2 ABG 109.4 mmHg (80.0-100.0); PO2 FiO2 Ratio Arterial Blood 3.91 %; Total Hemoglobin 12.6 g/dL (12.0-18.0); pH ABG 7.347 (7.350-7.450)
[2023-03-05 05:47] LABS: PCO2 ABG 76.6 mmHg (35.0-45.0); Site Drawn LEFT RADIAL
[2023-03-05 05:48] LABS: Device NASAL CANNULA; Modified Allen's Test Pass
[2023-03-05] MEDS: FERROUS SULFATE 325 MG TABLET DR PO (08:42)
[2023-03-05] MEDS: FUROSEMIDE 20 MG TABLET 40 MG PO (08:42)
[2023-03-05] MEDS: predniSONE 40 MG, predniSONE 10 MG 50 MG PO (08:42)
[2023-03-05] MEDS: METOPROLOL SUCCINATE EXT REL 25 MG TABCR PO (08:43)
[2023-03-05] MEDS: POTASSIUM CHLORIDE 10 MEQ ER TABLET PO (08:44)
[2023-03-05] MEDS: PANTOPRAZOLE 40 MG TABLET PO (09:26)
[2023-03-05] MEDS: SILVERGEL (ELTA) 45 ML 1 APPLIC TOPICAL (09:26)
--- NOTE | 2023-03-05 09:34 | PM.PNPUL ---
Progress Note: A&P Assessment and Plan (1) COPD exacerbation: Code(s): J44.1 - Chronic obstructive pulmonary disease with (acute) exacerbation Status: Acute Assessment and Plan: Patient with tobacco use since age 17 to age 59 (quit 2009),1/2 pack per day for 21 pack years, exposed to secondhand smoke from her mother and from her until 2014, severe panlobular emphysema in all lobes on chest CT 02/27/23, on 3 L nasal cannula 12/03 prior to admission. 03/02 Her home med list shows that she takes Spiriva. She has severe emphysema, would benefit from nebulized medications instead of inhaler as she has limited inspiratory reserve, cannot take a breath in that is effective enough to distribute a puff of tiotropium around her damaged lung tissue. Continue budesonide 0.5 mg BID, arformoterol 15 mcg/2 ml BID, ipratropium q.i.d. and albuterol daily. She will need these for discharge. She has an old nebulizer at home. Pulmonary rehab would be beneficial however she would need PFTs, home O2 evaluation and Lexiscan before starting therapy.? She does not get out of the house much. Has no sputum to evaluate, says that she has small amounts of brown sputum at home once every few weeks.? She does not have frequent respiratory infections. 03/03 Plan: *small amount of acetazolamide, re-set Capnostat. *Check RA saturation; if 92% or higher, leave on room air at rest. * Wean O2 down. On 2 L at rest, saturation is 97-100%. *oral prednisone taper started today 03/03 * Stopped Spiriva. Started budesonide 0.5 mg BID, arformoterol 15 mcg/2 ml BID, ipratropium q.i.d. and albuterol daily. * Home oxygen evaluation before discharge No ApneaLink or PAP therapy for home use; she says she can not stand using it, does not like the mask which is uncomfortable.? She would not use PAP therapy at home. She needs ENT outpatient follow-up for hearing loss and left ear fullness. I did not detect anything on my limited exam. * She needs a thorough neuro exam for distinguishing cause of her dizziness and falls, and L Ptosis. She becomes wobbly when she is on her heels. Has fallen several times at home. Consider evaluation and treatment of depression. She quit eating and lost 43 lb after 2019. 03/05 patient tells me that she is breathing back at her baseline, her cough is improved and now at her normal state, she has some phlegm production that is improved from admission. She is on 2 L nasal cannula saturations 100%. She had a blood gas this morning on 2 L nasal cannula 7.35/77/109. Today is day 6 of prednisone and I will discontinue. At baseline patient is debilitated and can only walk 20-30 feet due to shortness of breath. She does have some issues expectorating her phlegm but she states she had a reaction to guaifenesin in the past and she said the medicine did not agree with her. She has an allergy with anaphylactic shock in the chart so I will not prescribe guaifenesin. I will discharge on DuoNebs q.i.d. and budesonide b.i.d. From a pulmonary perspective patient is ready to be discharged on these pulmonary medications: Albuterol 2.5 mg nebulized q.i.d. Ipratropium 0.5 mg nebulized q.i.d. Budesonide 0.5 mg nebulized b.i.d. Oxygen per formal home O2 assessment which I have ordered. Oxygen at night at the same level as with ambulation until an overnight oximetry study can be performed. Follow-up in the Pulmonary Clinic in 3-4 weeks. I gave her our business card and informed our stonecutter. Will consider outpatient PFTs, alp[graff 1 testing, overnight oximetry, and pulmonary rehabilitation. Discussed with Dr. Yusuf. (2) Acute on chronic respiratory failure with hypoxia and hypercapnia: Code(s): J96.21 - Acute and chronic respiratory failure with hypoxia; J96.22 - Acute and chronic respiratory failure with hypercapnia Status: Acute Assessment and Plan: 03/03: She uses O2 at home, 3 L/min around the clock. She used BiPAP 07/25 with 3 L wh
[2023-03-05] MEDS: BUDESONIDE RESPULE NEB 0.5 MG/2 ML AMP INHALATION (09:39)
--- NOTE | 2023-03-05 10:43 | PM.DS ---
DS: Admitting Diagnosis Discharge Date March 05, 2023 Admitting Diagnosis Will COPD DS: Discharge Diagnosis Discharge Diagnosis (1) Acute on chronic respiratory failure with hypoxia and hypercapnia: Code(s): J96.21 - Acute and chronic respiratory failure with hypoxia; J96.22 - Acute and chronic respiratory failure with hypercapnia Status: Acute Assessment and Plan: ABG looks better. Looks compensated at this point. 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 appreciate pulmonary input. Patient not likely to use BiPAP at night. And is hardly tolerating a here. Will not use BiPAP tonight and recheck ABG in the morning. Appears to be breathing much better. Home O2 eval prior to discharge (2) Encephalopathy: Code(s): G93.40 - Encephalopathy, unspecified Status: Acute Assessment and Plan: Improved (3) Fall from ground level: Code(s): W18.30XA - Fall on same level, unspecified, initial encounter Status: Acute Assessment and Plan: PT OT (4) Contusion of forehead: Qualifiers: Encounter type: initial encounter Qualified Code(s): S00.83XA - Contusion of other part of head, initial encounter Code(s): S00.83XA - Contusion of other part of head, initial encounter Status: Acute Assessment and Plan: Monitor (5) Skin tear of right lower leg without complication: Qualifiers: Encounter type: initial encounter Qualified Code(s): S81.811A - Laceration without foreign body, right lower leg, initial encounter Code(s): S81.811A - Laceration without foreign body, right lower leg, initial encounter Status: Acute (6) Acute exacerbation of chronic obstructive pulmonary disease: Code(s): J44.1 - Chronic obstructive pulmonary disease with (acute) exacerbation Status: Acute Assessment and Plan: Continue steroids. Continue nebulizers. No indication for antibiotics at this time Pulmonary consult (7) Reflux esophagitis: Code(s): K21.00 - Gastro-esophageal reflux disease with esophagitis, without bleeding Status: Acute Assessment and Plan: History of, continue PPI. DS: Summary Hospital Course Hospital Course: Patient is a 72-year-old female past history of smoking. She does have underlying COPD and emphysema. She came CO2 retention. She was put BiPAP which helped her ABG however patient will likely not continue this at home. She has refused BiPAP tear in the hospital for several nights. Her ABG shows chronic compensation. Pulmonary was consulted. Recommendations for nebulizers inhalers etc. will be continued on discharge otherwise patient can be discharged follow up Pulmonary as outpatient Time Spent with Patient Time attestation: Total time spent providing and/or coordinating discharge services: Exam Const: Other: Thin, frail, ill-appearing female in the semi-Bliss position in bed on BiPAP. She is somnolent but arousable to noxious stimuli. Weight: 36.4 kg. BMI: 16.2. HENMT: Other: There is a hematoma across the forehead, more prominent on the right. BiPAP in place. Nares patent. Tacky mucous membranes. Eyes: Other: Pupils are approximately 3 mm and are reactive. Sclerae anicteric. Conjunctiva mildly injected. Neck: Other: Supple. No obvious JVD. Resp: Other: Respirations are nonlabored and she is tolerating BiPAP. Lung sounds are significantly diminished throughout with faint expiratory wheezing. Tidal volumes between 200 and 300. Cardio: Other: Regular rate rhythm with normal S1-S2. GI: Other: Abdomen is soft, flat, nontender, nondistended with positive bowel sounds. Skin: Other: Warm and dry. Hematoma on the forehead. There is a skin tear on the right leg. Neuro: Other: Alert to name. She does not answer the rest of the orientation questions. Cranial nerves 2-12 appear grossly intact. Hand storeroom attendant are weak du
--- NOTE | 2023-03-05 15:04 | HOMEO2EVAL ---
Evaluation was performed at [facility] Home Oxygen Evaluation RC: Home Oxygen (O2) Evaluation Start: 03/02/23 21:44 Freq: ONCE Status: Active Protocol: RPE Activity Type Activity Date Activity User E-sign Co-sign Detail Recorded Client Recorded Date Recorded By Document 03/05/23 11:00 PK [email or web address] 03/05/23 15:04 PKH Document 03/05/23 11:05 [email or web address] [email or web address] 03/05/23 15:04 PKH Document 03/05/23 11:10 PK [email or web address] 03/05/23 15:04 PK Document 03/05/23 11:15 PK [email or web address] 03/05/23 15:04 PK Document 03/05/23 11:30 PK [email or web address] 03/05/23 15:04 PKH 03/05/23 03/05/23 03/05/23 11:00 11:05 11:10 Home O2 Evaluation [Oxygen] -Test Phase Resting Resting Exercise -Oxygen Delivery Room Air Nasal Cannula Nasal Cannula -Oxygen Flow Rate (L/min) 1 1 [Pulse Oximetry] -Pulse Oximetry (90-100 %) 87 L 90 87 L [Pulse Rate] -Pulse Rate (60-100 beats/min) 109 H 110 H 109 H [Evaluation] -Activity Tolerance Good [Charges] -Treatment Charges O2 Evaluation - Inpatient 03/05/23 03/05/23 11:15 11:30 Home O2 Evaluation [Oxygen] -Test Phase Exercise Resting -Oxygen Delivery Nasal Cannula Nasal Cannula -Oxygen Flow Rate (L/min) 2 1 [Pulse Oximetry] -Pulse Oximetry (90-100 %) 90 91 [Pulse Rate] -Pulse Rate (60-100 beats/min) 107 H 106 H [Evaluation] -Activity Tolerance [Charges] -Treatment Charges
--- NOTE | 2023-03-05 15:04 | PCRCNOTE ---
HOME O2 EVAL COMPLETE. 1LPM ROOM AIR 2LPM WITH ACTIVITY. RN NOTIFIED. PATIENT HAS HOME O2 WITH [facility]. FAMILY TO BRING IN TANK UPON DISCHARGE.
--- NOTE | 2023-03-05 15:30 | PCNFU ---
Nutrition Follow-Up Complete: Inadequate oral intake related to loss of appetite, increased protein energy needs from wounds, as evidenced by 50% meal intake, BMI 16. Adequate PO intake at least 75% meals and supplements - Not meeting goal consistently Maintain weight during admission - Goal is being met Goal: Pt current nutrition is Heart healthy diet, 50% intakes. Ensure Enlive TID, 240 ml (100%) No intakes recorded on [place]. Nutrition recommendation: Continue current care plan and monitoring Last recorded weight is 36.5 kg. Bowel Motility: Last BM 03/02/23 Labs Reviewed: Na 136, K+ 3.1, BUN 28, Cre 0.5, Glu 223 Meds Noted: Lasix, protonix Skin: Stage III coccyx Additional Notes: Unsure if patient is discharging today or tomorrow. Appetite is improved. Agree with current orders Monitor intakes, weights, labs, supplement tolerance, plan of care, wound healing Follow up in 5 days
== END 2023-03-05 16:50 | disposition home health service (06) | DRG 189 ==
LOC: ANHED 22:55 → ANHIMU 23:15 → ANH2MED 03-04 14:10
PROVIDERS: Physician Assistant; Preventive Medicine Aerospace Medicine; Admitting Provider Internal Medicine; Emergency Provider Emergency Medicine; Visit Provider Chiropractor
DX: J96.21 Acute and chronic respiratory failure with hypoxia (principal); G93.40 Encephalopathy, unspecified; J43.1 Panlobular emphysema; F32.A Depression, unspecified; H02.402 Unspecified ptosis of left eyelid; J96.22 Acute and chronic respiratory failure with hypercapnia; K21.00 Gastro-esophageal reflux disease with esophagitis, without bleeding; R47.81 Slurred speech; S00.83XA Contusion of other part of head, initial encounter; S81.011A Laceration without foreign body, right knee, initial encounter; W18.09XA Striking against other object with subsequent fall, initial encounter; Z99.81 Dependence on supplemental oxygen; Z96.642 Presence of left artificial hip joint; Z87.891 Personal history of nicotine dependence
CPT/HCPCS: 36415; 36600; 70450; 71045; 71275; 72125; 80048; 80053; 82375; 82805; 83050; 84439; 84443; 84480; 85025; 85027; 87070; 87147; 87181; 87186; 87205; 90471; 90715; 93005; 94002; 94003; 94618; 94640; 94660; 96360; 96361; 97110; 97161; 97165; 97530; 97535; 99285; A9270; J1885; J2930; J3480; J7030; J7512; Q9967

== ENCOUNTER 2023-03-26 07:54 | Emergency (ER) | payer MEDICARE, OTHER, SELFPAY ==
[2023-03-26] VITALS (10 sets, daily range): BP systolic 106–114; BP diastolic 48–70; PULSE 91–100; RESP 16–23; TEMP 36.4; O2SAT 97–100
--- NOTE | ~2023-03-26 | XR_ITS ---
Portable chest x-ray Comparison: 03/04/2023 Clinical History: Shortness of breath Findings: Probable COPD present, with stable biapical/upper lobe scarring. No acute consolidation, p leural effusion, or pneumothorax. Cardiomediastinal silhouette is stable. Bones and soft tissues are unremarkable. Impression: No definite acute abnormality. Probable COPD with stable biapical/upper lobe scarring. Reviewed, dictated and finalized at location . Impression: No definite acute abnormality. Probable COPD with stable biapical/upper lobe scarring.
--- NOTE | 2023-03-26 08:00 | ED.WEAKNESS ---
HPI - Weakness General Chief complaint: Weakness Stated complaint: weakness, SOB History of Present Illness HPI Narrative: Pt presents with generlaized weakness from home and poor oral intake. Pt a little more SOB than usual this morning but this is resolved after oxygen upped by EMS. accucheck in route 300 and pt has no history of DM. Related Data Home Medications Medication Instructions Recorded Confirmed A-G Iron 324 mg PO DAILY 02/28/23 02/28/23 albuterol 2 puff inhalation Q6H PRN Wheezing 02/28/23 02/28/23 furosemide 40 mg PO DAILY 02/28/23 02/28/23 omeprazole 20 mg PO DAILY 02/28/23 02/28/23 potassium 10 meq PO DAILY 02/28/23 02/28/23 Allergies Allergy/AdvReac Type Severity Reaction Status Date / Time acetaminophen Allergy Severe Anaphylactic Verified 03/26/23 08:05 Shock guaifenesin Allergy Severe Anaphylactic Verified 03/26/23 08:05 Shock hydrocodone Allergy Severe Anaphylactic Verified 03/26/23 08:05 Shock potassium guaiacolsulfonate Allergy Severe Anaphylactic Verified 03/26/23 08:05 Shock sulfamethoxazole Allergy Severe Anaphylactic Verified 03/26/23 08:05 Shock trimethoprim Allergy Severe Anaphylactic Verified 03/26/23 08:05 Shock codeine Allergy Mild Anaphylactic Verified 03/26/23 08:05 Shock Review of Systems Review of Systems: All systems reviewed & are unremarkable except as noted in HPI and below PMFSH Past Medical History Medical History (Updated 03/26/23 @ 10:09 by Vlad Hale III, DO) Chronic respiratory failure with hypoxia, on home oxygen therapy Emphysema of lung Surgical History Surgical History History of left hip replacement Family History Family History (Updated 02/28/23 @ 00:36 by Edith Jones PA-C) Other Family history unknown Social History Social History (Updated 02/28/23 @ 00:37 by Edith Jones PA-C) Social History: Code status: Full code. Smoking status: Never smoker Alcohol intake: never Substance use: never Substance use type: does not use Additional living arrangements comments: Lives in [place]. Has a son Dominick and a daughter Roopa. Spiritual care concerns: No Exam Const: General: healthy appearing and no acute distress Nutritional Appearance: thin Orientation/consciousness: patient oriented x3 Limitations: no limitations HENMT: Mouth: Yes dry mucous membranes Neck: Neck: normal visual inspection Resp: Effort & Inspection: normal respiratory effort Auscultation: clear to auscultation bilaterally Cardio: Rate: regular rate Rhythm: regular rhythm GI: GI Palp: Yes Soft to palpation and No Tenderness to palpation present (GI) Auscultation: normal bowel sounds Skin: General skin exam: normal color Neuro: General: patient oriented x3, moves all extremities, no meningeal signs and no focal motor deficits Speech: normal speech Extrem: General: edema Psych: Mental Status: mental status grossly normal Affect: normal affect Attitude: cooperative Course Vital Signs Vital signs: Vital Signs Temperature 97.6 F 03/26/23 07:54 Pulse Rate 98 03/26/23 07:54 Respiratory Rate 18 03/26/23 07:54 Blood Pressure 106/70 03/26/23 07:54 Pulse Oximetry 99 03/26/23 07:54 Oxygen Delivery Nasal Cannula 03/26/23 07:54 Oxygen Flow Rate 2 03/26/23 07:54 Temperature 97.6 F 03/26/23 07:54 Pulse Rate 91 03/26/23 11:18 Respiratory Rate 17 03/26/23 11:18 Blood Pressure 107/48 L 03/26/23 11:18 Pulse Oximetry 98 03/26/23 11:18 Oxygen Delivery Nasal Cannula 03/26/23 07:54 Oxygen Flow Rate 2 03/26/23 07:54 MDM - Weakness MDM Narrative Medical decision making narrative: differntial includes copd exac, pneumonia, new onset diabetes, dehyudration electlyte imbalance to start, will order labs and cxr and give IVF and repeat accucheck plus neb. pt feels better and is back on 2L of oxygen after
--- NOTE | 2023-03-26 08:01 | ECG_ITS ---
Measurements Intervals [place] Rate: 96 P: 82 ME: 129 QRS: 78 QRSD: 86 T: 73 QT: 330 QTc: 418 Interpretive Statements SINUS RHYTHM COMPARED TO ECG 02/27/2023 15:31:55 SINUS RHYTHM NOW PRESENT Electronically Signed On 03-29-2023 8:54:55 CDT by Anjelica Silva M.D.
[2023-03-26] MEDS: SODIUM CHLORIDE 0.9% IV 1,000 ML 999 ML IV CONT (08:14)
[2023-03-26 08:17] LABS: Basophils Absolute Auto 0.1 K/mm3 (0.0-0.1); Basophils Percent Auto 0.9 % (0.2-1.2); Eosinophils Absolute Auto 0.1 K/mm3 (0-0.3); Eosinophils Percent Auto 1.4 % (0-4.4); Hematocrit 35.9 % (37.0-47.0); Hemoglobin 10.4 g/dL (12.0-15.0); Immature Granulocyte Absolute 0.02 K/mm3 (0.00-0.031); Immature Granulocyte Percent A 0.4 % (0-0.5); Lymphocytes Absolute Auto 0.79 K/mm3 (0.9-3.2); Lymphocytes Percent Auto 14.2 % (18.3-44.2); Mean Corpuscular Hemoglobin 28.2 pg (26-34); Mean Corpuscular Volume 97.3 fl (80-100); Mean Platelet Volume 9.9 fl (7.4-10.4); Monocytes Absolute Auto 0.4 K/mm3 (0.1-0.6); Monocytes Percent Auto 6.5 % (2.6-8.5); Neutrophils Absolute Auto 4.3 K/mm3 (1.3-6.7); Neutrophils Percent Auto 76.6 % (45.5-73.1); Platelet Count Result 216 k/mm3 (150-375); Red Blood Count 3.69 M/mm3 (4.2-5.4); Red Cell Distribution Width 11.1 % (11.5-14.5); White Blood Count 5.6 K/mm3 (4.5-10.0)
[2023-03-26 08:20] LABS: Glucose Point of Care 254 mg/dl (65-105)
[2023-03-26] MEDS: ALBUTEROL SULFATE NEB 2.5 MG/3 ML INH INHALATION (08:22)
[2023-03-26] MEDS: IPRATROPIUM BR 0.02% INH SOLN 0.5 MG/2.5 ML VIAL INHALATION (08:22)
[2023-03-26 08:27] LABS: Alanine Aminotransferase 12 U/L (6-35); Albumin Level 3.3 g/dL (3.5-5.1); Alkaline Phosphatase 69 U/L (38-126); Aspartate Amino Transferase 20 U/L (14-36); Bilirubin,Total 0.3 mg/dL (0.2-1.3); Blood Urea Nitrogen 12 mg/dL (7-17); Calcium 9.3 mg/dL (8.4-10.2); Carbon Dioxide > 40 mmol/L (22-30); Chloride 83 mmol/L (98-107); Estimated Glomerular Filt Rate > 60; Glucose 267 mg/dL (65-110); Potassium 3.9 mmol/L (3.4-5.0); Sodium 134 mmol/L (137-145)
[2023-03-26 09:08] LABS: Hemoglobin A1C 6.6 % (<5.7)
== END 2023-03-26 11:20 | disposition home or self-care (01) ==
PROVIDERS: Emergency Provider Emergency Medicine
DX: J44.1 Chronic obstructive pulmonary disease with (acute) exacerbation (principal); R73.9 Hyperglycemia, unspecified; J96.11 Chronic respiratory failure with hypoxia; Z99.81 Dependence on supplemental oxygen; Z96.642 Presence of left artificial hip joint
CPT/HCPCS: 36415; 71045; 80053; 82948; 83036; 85025; 93005; 94640; 96360; 99283; J7030